=== PATIENT | female | born 1980 | race American Indian/Alaskan Native ===

== ENCOUNTER 2021-08-12 14:11 | Observation (INO) | payer MEDICAID ==
[2021-08-12] MEDS ORDERED: ASPIRIN 81 MG TAB CHEW PO ONE ×2 (15:10)
--- NOTE | 2021-08-12 15:34 | Emergency Department Report ---
ED General Adult HPI - General Chief complaint: Chest Pain Stated complaint: Chest Pains Time Seen by Provider: 08/12/21 14:48 Source: patient, family Mode of arrival: Ambulatory Limitations: No Limitations - History of Present Illness Initial comments: Patient is a 41-year-old female presents emergency room complaints of left-sided chest pain that began 3 days ago. She states that she has intermittent sharp pain which she states feels like a pulling sensation but she reports today it has been constant. She states that she has some shortness of breath and feels like she needs to catch her breath. She denies any pleuritic pain. She denies any radiation of the pain, diaphoresis, nausea, vomiting, leg swelling, calf pain, hemoptysis, cough, diarrhea. She denies any known sick contacts, recent travel, recent surgery, recent immobilization, hormone use. Past medical history of CAD. She states that she had a heart cath in February 2021 with a c ardiologist at [facility] and she states that she has 50% blockage of her LAD but states that they do not want to place a stent and wanted to manage it medically. Allergy to morphine. Patient is a former smoker. pt states she had a low dose aspirin 81 mg today - Related Data Allergies Allergy/AdvReac Type Severity Reaction Status Date / Time morphine Allergy Severe Hives Verified 08/12/21 14:34 ED Review of Systems ROS: Stated complaint: Chest Pains Other details as noted in HPI Comment: All other systems reviewed and negative ED Physical Exam - General Limitations: No Limitations General appearance: alert, in no apparent distress - Head Head exam: Present: atraumatic, normocephalic - Eye Eye exam: Present: normal appearance - ENT ENT exam: Present: mucous membranes moist - Respiratory Respiratory exam: Present: normal lung sounds bilaterally. Absent: respiratory distress, wheezes, rales, rhonchi, stridor, chest wall tenderness, accessory muscle use, decreased breath sounds, prolonged expiratory - Cardiovascular Cardiovascular Exam: Present: regular rate, normal rhythm, normal heart sounds. Absent: systolic murmur, diastolic murmur, rubs, gallop - Neurological Exam Neurological exam: Present: alert, oriented X3 - Psychiatric Psychiatric exam: Present: normal affect, normal mood - Skin Skin exam: Present: warm, dry, intact ED Course Vital Signs 11/29/21 11/29/21 20:09 20:17 Temperature 98.7 F Respiratory 12 Rate Blood Pressure 134/76 [Right] O2 Sat by Pulse 100 Oximetry - Consultations Consultation #1: 08/12/21 21:[address] Lyons, hospitalist who will accept and resume care of patient, will admit to hospital service ED Medical Decision Making - Lab Data Result diagrams: 08/12/21 15:13 08/12/21 15:13 Lab Results 08/12/21 08/12/21 08/12/21 Range/Units 15:13 15:13 15:13 WBC 7.5 (4.5-11.0) K/mm3 RBC 4.30 (3.65-5.03) M/mm3 Hgb 12.0 (10.1-14.3) gm/dl Hct 37.8 (30.3-42.9) % MCV 88 (79-97) fl MCH 28 (28-32) pg MCHC 32 (30-34) % RDW 15.0 (13.2-15.2) % Plt Count 303 (140-440) K/mm3 Lymph % (Auto) 31.4 (13.4-35.0) % [place] % (Auto) 7.2 (0.0-7.3) % Eos % (Auto) 3.0 (0.0-4.3) % Baso % (Auto) 0.5 (0.0-1.8) % Lymph # (Auto) 2.3 (1.2-5.4) K/mm3 [place] # (Auto) 0.5 (0.0-0.8) K/mm3 Eos # (Auto) 0.2 (0.0-0.4) K/mm3 Baso # (Auto) 0.0 (0.0-0.1) K/mm3 Seg Neutrophils % 57.9 (40.0-70.0) % Seg Neutrophils # 4.3 (1.8-7.7) K/mm3 D-Dimer < 135.0 (0-234) ng/mlDDU Sodium 139 (137-145) mmol/L Potassium 3.5 L (3.6-5.0) mmol/L Chloride 107.3 H (98-107) mmol/L Carbon Dioxide 18 L (22-30) mmol/L Anion Gap 17 mmol/L BUN 10 (7-17) mg/dL Creatinine 0.9 (0.6-1.2) mg/dL Estimated GFR > 60 ml/min BUN/Creatinine Ratio 11 % Glucose 83 (65-100) mg/dL Calcium 9.1 (8.4-10.2) mg/dL Total Bilirubin 0.50 (0.1-1.2) mg/dL AST 19 (5-40) units/L ALT 36 (7-56) units/L Alkaline Phosphatase 117 (35-129) units/L Troponin T < 0.010 (0.00-0.029) ng/mL Total Protein 8.0 (6.3-8.2) g/dL Albumin 4.5 (3.9-5) g/dL Albumin/Globulin Ratio 1.3 % HCG, Qual (Negative) 08/12/21 08/12/21 Range/Units 15:13 18:28 WBC (4.5-11.0) K/mm3 RBC (3.65-5.03) M/mm3 Hgb (10.1-14.3) gm/dl Hct (30.3-42.9) % MCV (79-97) fl MCH (28-32) pg MCHC (30-34) % RDW (13.2-15.2) % Plt Count (140-440) K/mm3 Lymph % (Auto) (13.4-35.0) % [place] % (Auto) (0.0-7.3) % Eos % (Auto) (0.0-4.3) % Baso % (Auto) (0.0-1.8) % Lymph # (Auto) (1.2-5.4) K/mm3 [place] # (Auto) (0.0-0.8) K/mm3 Eos # (Auto) (0.0-0.4) K/mm3 Baso # (Auto) (0.0-0.1) K/mm3 Seg Neutrophils % (40.0-70.0) % Seg Neutrophils # (1.8-7.7) K/mm3 D-Dimer (0-234) ng/mlDDU Sodium (137-145) mmol/L Potassium (3.6-5.0) mmol/L Chloride (98-107) mmol/L Carbon Dioxide (22-30) mmol/L Anion Gap mmol/L BUN (7-17) mg/dL Creatinine (0.6-1.2) mg/dL Estimated GFR ml/min BUN/Creatinine Ratio % Glucose (65-100) mg/dL Calcium (8.4-10.2) mg/dL Total Bilirubin (0.1-1.2) mg/dL AST (5-40) units/L ALT (7-56) units/L Alkaline Phosphatase (35-129) units/L Troponin T < 0.010 (0.00-0.029) ng/mL Total Protein (6.3-8.2) g/dL Albumin (3.9-5) g/dL Albumin/Globulin Ratio % HCG, Qual Negative (Negative) - EKG Data EKG shows normal: sinus rhythm, axis, intervals, QRS complexes, ST-T waves Rate: normal - Radiology Data Radiology results: report reviewed Ordering Physician: MATTHIAS OWENS Date of Service: 08/12/21 Procedure(s): XR chest routine 2V Accession Number(s): [id number] cc: MATTHIAS OWENS Fluoro Time In Minutes: CHEST 2 VIEWS INDICATION / CLINICAL INFORMATION: Chest Pain. COMPARISON: 01/31/2021 FINDINGS: SUPPORT DEVICES: None. HEART / MEDIASTINUM: No significant abnormality. LUNGS / PLEURA: No significant pulmonary or pleural abnormality. No pneumothorax. ADDITIONAL FINDINGS: No significant additional findings. IMPRESSION: 1. No acute findings. Signer Name: True Sims MD Signed: 08/12/2021 4:40 PM Workstation Name: [id number] Transcribed By: MADHURI Dictated By: True Sims MD Electronically Authenticated By: True Sims MD Signed Date/Time: 08/12/21 1640 DD/ 1639 TD/TT: - Medical Decision Making Patient is a 41-year-old female presents emergency room complaints of left-sided chest pain that began 3 days ago. She states that she has intermittent sharp pain which she states feels like a pulling sensation but she reports today it has been constant. She states that she has some shortness of breath and feels like she needs to catch her breath. She denies any pleuritic pain. She denies any radiation of the pain, diaphoresis, nausea, vomiting, leg swelling, calf pain, hemoptysis, cough, diarrhea. She denies any known sick contacts, recent travel, recent surgery, recent immobilization, hormone use. Past medical history of CAD. She states that she had a heart cath in February 2021 with a jamb cutter at [facility] and she states that she has 50% blockage of her LAD but states that they do not want to place a stent and wanted to manage it medic ally. Allergy to morphine. Patient is a former smoker. pt states she had a low dose aspirin 81 mg today. EKG is within normal limits. Chest x-ray is normal. D-dimer is negative, PERC criteria negative for PE, PE unlikely. Troponin is negative x2. Patient's heart score is 4. Discussed case with Dr. Khan, ER attending who recommended admission.Spoke to Dr. Lyons, hospitalist who will accept and resume care of patient, will admit to hospital service. Discussed all findings with patient and she is agreeable with admission. Critical care attestation.: If time is entered above; I have spent that time in minutes in the direct care of this critically ill patient, excluding procedure time. ED Disposition Clinical Impression: Chest pain Qualifiers: Chest pain type: unspecified Qualified Code(s): R07.9 - Chest pain, unspecified Disposition: 02 [facility] TERM [facility] Is pt being admited?: Yes Does the pt Need Aspirin: Yes (given) Condition: Stable Instructions: Nonspecific Chest Pain, Adult Referrals: GOLDEN GOLDEN MD [Primary Care Provider] - 3-5 Days Time of Disposition: 21:31 Print Language: PORTUGUESE HEART Score - HEART Score History: Highly suspicious EKG: Normal Age: < 45 Risk factors: > 3 risk factors or hx of atherosclerotic disease Troponin: Troponin T < 0.010 ng/mL (0.00-0.029) 08/12/21 18:28 Troponin: < normal limit HEART Score: 4
[2021-08-12 15:39] LABS: Basophils % (Auto) 0.5 % (0.0-1.8); Eosinophils # (Auto) 0.2 K/mm3 (0.0-0.4); Hematocrit 37.8 % (30.3-42.9); Lymphocytes # (Auto) 2.3 K/mm3 (1.2-5.4); Lymphocytes % (Auto) 31.4 % (13.4-35.0); Mean Corpuscular HGB Conc 32 % (30-34); Mean Corpuscular Volume 88 fl (79-97); Monocytes # (Auto) 0.5 K/mm3 (0.0-0.8); Monocytes % (Auto) 7.2 % (0.0-7.3); Platelet Count 303 K/mm3 (140-440)
[2021-08-12 16:13] LABS: Alanine Aminotransferase 36 units/L (7-56); Albumin 4.5 g/dL (3.9-5); BUN/Creatinine Ratio 11; Blood Urea Nitrogen 10 mg/dL (7-17); Calcium 9.1 mg/dL (8.4-10.2); Hemolysis Index 4
--- NOTE | 2021-08-12 16:44 | XRay Report ---
CHEST 2 VIEWS INDICATION / CLINICAL INFORMATION: Chest Pain. COMPARISON: 01/31/2021 FINDINGS: SUPPORT DEVICES: None. HEART / MEDIASTINUM: No significant abnormality. LUNGS / PLEURA: No significant pulmonary or pleural abnormality. No pneumothorax. ADDITIONAL FINDINGS: No significant additional findings. IMPRESSION: 1. No acute findings. Signer Name: True Sims MD Signed: 08/12/2021 4:40 PM Workstation Name: [id number]
[2021-08-12] MEDS ORDERED: NITROGLYCERIN 0.4 MG TAB SUBL SL PRN (22:16)
[2021-08-12] MEDS ORDERED: traMADol 50 MG TAB PO PRN (22:16)
[2021-08-12] MEDS ORDERED: ACETAMINOPHEN 325 MG TAB PO PRN (22:16)
[2021-08-12] MEDS ORDERED: HYDROmorphone 1 MG/1 ML INJ IV PRN (22:16)
--- NOTE | 2021-08-12 22:24 | History and Physical Report ---
History of Present Illness Date of examination: 08/12/21 Date of admission: 08/12/21 21:32 Chief complaint: Chest pain History of present illness: 41-year-old female with history of CAD, 50% blockage of her LAD was brought to the emergency room because of left-sided chest pain which is sharp 6/10 that began 3 days ago. Patient complained of intermittent sharp pain which she states feels like a pulling sensation but she reports today it has been constant. She states that she has some shortness of breath and feels like she needs to catch her breath. She denies any pleuritic pain. She denies any radiation of the pain, diaphoresis, nausea, vomiting, leg swelling, calf pain, hemoptysis, cough, diarrhea. She states that she had a heart cath in February 2021 with a application chemist at [facility] and she states that she has 50% blockage of her LAD but states that they do not want to place a stent and wanted to manage it medically. Allergy to morphine. Patient is a former smoker. pt states she had a low dose aspirin 81 mg today EKG is within normal limits. Chest x-ray is normal. D-dimer is negative, PERC criteria negative for PE, PE unlikely. Troponin is negative x2. Patient's heart score is 4. Admit the patient to the medical telemetry. Will consult cardiology for further evaluation and treatment Med rec is not available Past History Past Medical History: CAD Medications and Allergies Allergies Allergy/AdvReac Type Severity Reaction Status Date / Time morphine Allergy Severe Hives Verified 08/12/21 14:34 Review of Systems All systems: negative Cardiovascular: chest pain, shortness of breath, dyspnea on exertion Respiratory: shortness of breath, dyspnea on exertion Exam - Constitutional Vitals: Temp Pulse Resp BP Pulse Ox 98.5 F 67 17 128/68 100 08/12/21 22:00 08/12/21 22:00 08/12/21 22:00 08/12/21 22:00 08/12/21 22:00 General appearance: Present: no acute distress, well-nourished - EENT Eyes: Present: PERRL ENT: hearing intact, clear oral mucosa - Neck Neck: Present: supple, normal ROM - Respiratory Respiratory effort: normal Respiratory: bilateral: diminished - Cardiovascular Heart Sounds: Present: S1 & S2. Absent: rub, click - Extremities Extremities: pulses symmetrical, No edema Peripheral Pulses: within normal limits - Abdominal General gastrointestinal: Present: soft, non-tender, non-distended, normal bowel sounds Female genitourinary: Present: normal - Integumentary Integumentary: Present: clear, warm, dry - Musculoskeletal Musculoskeletal: gait normal, strength equal bilaterally - Psychiatric Psychiatric: appropriate mood/affect, intact judgment & insight - Neurologic Neurologic: CNII-XII intact, moves all extremities HEART Score - HEART Score EKG: Normal Age: < 45 Risk factors: > 3 risk factors or hx of atherosclerotic disease Troponin: Troponin T < 0.010 ng/mL (0.00-0.029) 08/12/21 18:28 Troponin: < normal limit Results - Labs CBC & Chem 7: 08/12/21 15:13 08/12/21 15:13 Labs: Laboratory Last Values WBC 7.5 K/mm3 (4.5-11.0) 08/12/21 15:13 RBC 4.30 M/mm3 (3.65-5.03) 08/12/21 15:13 Hgb 12.0 gm/dl (10.1-14.3) 08/12/21 15:13 Hct 37.8 % (30.3-42.9) 08/12/21 15:13 MCV 88 fl (79-97) 08/12/21 15:13 MCH 28 pg (28-32) 08/12/21 15:13 MCHC 32 % (30-34) 08/12/21 15:13 RDW 15.0 % (13.2-15.2) 08/12/21 15:13 Plt Count 303 K/mm3 (140-440) 08/12/21 15:13 Lymph % (Auto) 31.4 % (13.4-35.0) 08/12/21 15:13 [place] % (Auto) 7.2 % (0.0-7.3) 08/12/21 15:13 Eos % (Auto) 3.0 % (0.0-4.3) 08/12/21 15:13 Baso % (Auto) 0.5 % (0.0-1.8) 08/12/21 15:13 Lymph # (Auto) 2.3 K/mm3 (1.2-5.4) 08/12/21 15:13 [place] # (Auto) 0.5 K/mm3 (0.0-0.8) 08/12/21 15:13 Eos # (Auto) 0.2 K/mm3 (0.0-0.4) 08/12/21 15:13 Baso # (Auto) 0.0 K/mm3 (0.0-0.1) 08/12/21 15:13 Seg Neutrophils % 57.9 % (40.0-70.0) 08/12/21 15:13 Seg Neutrophils # 4.3 K/mm3 (1.8-7.7) 08/12/21 15:13 D-Dimer < 135.0 ng/mlDDU (0-234) 08/12/21 15:13 Sodium 139 mmol/L (137-145) 08/12/21 15:13 Potassium 3.5 mmol/L (3.6-5.0) L 08/12/21 15:13 Chloride 107.3 mmol/L (98-107) H 08/12/21 15:13 Carbon Dioxide 18 mmol/L (22-30) L 08/12/21 15:13 Anion Gap 17 mmol/L 08/12/21 15:13 BUN 10 mg/dL (7-17) 08/12/21 15:13 Creatinine 0.9 mg/dL (0.6-1.2) 08/12/21 15:13 Estimated GFR > 60 ml/min 08/12/21 15:13 BUN/Creatinine Ratio 11 % 08/12/21 15:13 Glucose 83 mg/dL (65-100) 08/12/21 15:13 Calcium 9.1 mg/dL (8.4-10.2) 08/12/21 15:13 Total Bilirubin 0.50 mg/dL (0.1-1.2) 08/12/21 15:13 AST 19 units/L (5-40) 08/12/21 15:13 ALT 36 units/L (7-56) 08/12/21 15:13 Alkaline Phosphatase 117 units/L (35-129) 08/12/21 15:13 Troponin T < 0.010 ng/mL (0.00-0.029) 08/12/21 18:28 Total Protein 8.0 g/dL (6.3-8.2) 08/12/21 15:13 Albumin 4.5 g/dL (3.9-5) 08/12/21 15:13 Albumin/Globulin Ratio 1.3 % 08/12/21 15:13 HCG, Qual Negative (Negative) 08/12/21 15:13 - Imaging and Cardiology Chest x-ray: report reviewed Assessment and Plan VTE prophylaxis?: Chemical Plan of care discussed with patient/family: Yes - Patient Problems (1) Acute coronary syndrome Current Visit: Yes Status: Acute Plan to address problem: Admit the patient to the medical telemetry. N.p.o. Aspirin 325 mg p.o. daily. Lipitor 80 mg p.o. daily. Nitroglycerin half-inch to the chest wall every 6 hours. Serial cardiac enzymes. Echocardiogram. Consult cardiology for further evaluation and treatment. Heparin 5000 units subcu every 8 hours (2) Coronary artery disease Current Visit: Yes Status: Acute Plan to address problem: N.p.o. Aspirin 325 mg p.o. daily. Lipitor 80 mg p.o. daily. Nitroglycerin half-inch to the chest wall every 6 hours. Serial cardiac enzymes. Echocardiogram. Consult cardiology for further evaluation and treatment. H eparin 5000 units subcu every 8 hours (3) Tobacco abuse Current Visit: Yes Status: Acute Plan to address problem: Patient counseled regarding quit smoking (4) DVT prophylaxis Current Visit: Yes Status: Acute Plan to address problem: Heparin 5000 units subcu every 8 hours for DVT prophylaxis. Protonix 40 mg p.o. daily for GI prophylaxis. Patient is a full code
[2021-08-12] MEDS ORDERED: SODIUM CHLORIDE 0.9% 1000 ML 1,000 ML IV SCH (22:30)
[2021-08-13] MEDS ORDERED: ZOLPIDEM 5 MG TAB PO PRN (01:44)
[2021-08-13 04:19] VITALS: BP 114/63
[2021-08-13] MEDS: HEPARIN 5,000 UNIT/1 ML VIAL SUB-Q SCH ×2 (05:55→13:04)
[2021-08-13] MEDS: NITROGLYCERIN 2% OINT 1 GM TP SCH ×2 (06:41→13:02)
--- NOTE | 2021-08-13 09:20 | Progress Note ---
Assessment and Plan Assessment and plan: History of present illness: 41-year-old female with history of CAD, 50% blockage of her LAD was brought to the emergency room because of left-sided chest pain which is sharp 6/10 that began 3 days ago. Patient complained of intermittent sharp pain which she states feels like a pulling sensation but she reports today it has been constant. She states that she has some shortness of breath and feels like she needs to catch her breath. She denies any pleuritic pain. She denies any radiation of the pain, diaphoresis, nausea, vomiting, leg swelling, calf pain, hemoptysis, cough, diarrhea. She states that she had a heart cath in February 2021 with a skull splitter at [facility] and she states that she has 50% blockage of her LAD but states that they do not want to place a stent and wanted to manage it medically. Allergy to morphine. Patient is a former smoker. pt states she had a low dose aspirin 81 mg today EKG is within normal limits. Chest x-ray is normal. D-dimer is negative, PERC criteria negative for PE, PE unlikely. Troponin is negative x2. Patient's heart score is 4. Admit the patient to the medical telemetry. Will consult cardiology for further evaluation and treatment Med rec is not available Hospital course to date 08/13: D/w patient regarding chest pain. Appears to have accelerating symptoms of chest pain. She states she is complaint with medication. Patient has had workup with cardiac CT and cath which demonstrated calcific lesion in LAD approx 50%. She could benefit from long acting nitrate, such as imdur. will defer to cardiology for medical optimization. ECHO pending. Anticipate d/c in next 24hrs. Assessment and plan (1) Acute Coronary Syndrome Current Visit: Yes Status: Acute Plan to address problem: Admit the patient to the medical telemetry. N.p.o. Aspirin 325 mg p.o. daily. Lipitor 80 mg p.o. daily. Nitroglycerin half-inch to the chest wall every 6 hours. Serial cardiac enzymes. Echocardiogram. Consult cardiology for further evaluation and treatment. Heparin 5000 units subcu every 8 hours (2) Coronary artery disease Current Visit: Yes Status: Acute Plan to address problem: N.p.o. Aspirin 325 mg p.o. daily. Lipitor 80 mg p.o. daily. Nitroglycerin half-inch to the chest wall every 6 hours. Serial cardiac enzymes. Echocardiogram. Consult cardiology for further evaluation and treatment. Heparin 5000 units subcu every 8 hours Home cardiac meds: metoprolol ER 25 mg po qdaily, ASA 81, atorvastatin 40 mg po qhs, nitro 0.5 mg SL prn (3) Palpitations Current Visit: Yes Status: Acute Plan to address problem: History of palpitations per patient for which she takes diltiazem 120 mg po bid (3) Tobacco abuse Current Visit: Yes Status: Acute Plan to address problem: Patient counseled regarding quit smoking (4) DVT prophylaxis Current Visit: Yes Status: Acute Plan to address problem: Heparin 5000 units subcu every 8 hours for DVT prophylaxis. Protonix 40 mg p.o. daily for GI prophylaxis. Patient is a full code History Interval history: No acute complaints on encounter. Hospitalist Physical - Physical exam Narrative exam: Physical Exam: VITAL SIGNS: Reviewed. GENERAL: The patient appears normally developed, Vital signs as documented. HEAD: No signs of head trauma. EYES: Pupils are equal. Extraocular motions intact. EARS: Hearing grossly intact. MOUTH: Oropharynx is normal. NECK: No adenopathy, no JVD. CHEST: Chest with clear breath sounds bilaterally. No wheezes, rales, or rhonchi. CARDIAC: Regular rate and rhythm. S1 and S2, without murmurs, gallops, or rubs. VASCULAR: No Edema. Peripheral pulses normal and equal in all extremities. ABDOMEN: Soft, non tender and non distended. No rebound or guarding, and no masses palpated. Bowel Sounds normal. MUSCULOSKELETAL: Good range of motion of all major joints. Extremities without clubbing, cyanosis or edema. NEUROLOGIC EXAM: Alert and oriented x 4. no focal sensory or strength deficits. PSYCHIATRIC: Mood normal. SKIN: detail exam as documented in skin assessment - Constitutional Vitals: Temp Pulse Resp BP Pulse Ox 98.9 F 98 H 18 114/63 100 08/13/21 07:22 08/13/21 07:22 08/13/21 07:22 08/13/21 07:22 08/13/21 07:22 General appearance: Present: no acute distress, well-nourished HEART Score - HEART Score EKG: Normal Age: < 45 Risk factors: > 3 risk factors or hx of atherosclerotic disease Troponin: Troponin T < 0.010 ng/mL (0.00-0.029) 08/12/21 18:28 Troponin: < normal limit Results - Labs CBC & Chem 7: 08/12/21 22:16 08/12/21 15:13 Labs: Laboratory Last Values WBC 7.5 K/mm3 (4.5-11.0) 08/12/21 15:13 RBC 4.30 M/mm3 (3.65-5.03) 08/12/21 15:13 Hgb 12.0 gm/dl (10.1-14.3) 08/12/21 15:13 Hct 37.8 % (30.3-42.9) 08/12/21 15:13 MCV 88 fl (79-97) 08/12/21 15:13 MCH 28 pg (28-32) 08/12/21 15:13 MCHC 32 % (30-34) 08/12/21 15:13 RDW 15.0 % (13.2-15.2) 08/12/21 15:13 Plt Count 303 K/mm3 (140-440) 08/12/21 15:13 Lymph % (Auto) 31.4 % (13.4-35.0) 08/12/21 15:13 [place] % (Auto) 7.2 % (0.0-7.3) 08/12/21 15:13 Eos % (Auto) 3.0 % (0.0-4.3) 08/12/21 15:13 Baso % (Auto) 0.5 % (0.0-1.8) 08/12/21 15:13 Lymph # (Auto) 2.3 K/mm3 (1.2-5.4) 08/12/21 15:13 [place] # (Auto) 0.5 K/mm3 (0.0-0.8) 08/12/21 15:13 Eos # (Auto) 0.2 K/mm3 (0.0-0.4) 08/12/21 15:13 Baso # (Auto) 0.0 K/mm3 (0.0-0.1) 08/12/21 15:13 Seg Neutrophils % 57.9 % (40.0-70.0) 08/12/21 15:13 Seg Neutrophils # 4.3 K/mm3 (1.8-7.7) 08/12/21 15:13 D-Dimer < 135.0 ng/mlDDU (0-234) 08/12/21 15:13 Sodium 139 mmol/L (137-145) 08/12/21 15:13 Potassium 3.5 mmol/L (3.6-5.0) L 08/12/21 15:13 Chloride 107.3 mmol/L (98-107) H 08/12/21 15:13 Carbon Dioxide 18 mmol/L (22-30) L 08/12/21 15:13 Anion Gap 17 mmol/L 08/12/21 15:13 BUN 10 mg/dL (7-17) 08/12/21 15:13 Creatinine 0.9 mg/dL (0.6-1.2) 08/12/21 15:13 Estimated GFR > 60 ml/min 08/12/21 15:13 BUN/Creatinine Ratio 11 % 08/12/21 15:13 Glucose 83 mg/dL (65-100) 08/12/21 15:13 Calcium 9.1 mg/dL (8.4-10.2) 08/12/21 15:13 Total Bilirubin 0.50 mg/dL (0.1-1.2) 08/12/21 15:13 AST 19 units/L (5-40) 08/12/21 15:13 ALT 36 units/L (7-56) 08/12/21 15:13 Alkaline Phosphatase 117 units/L (35-129) 08/12/21 15:13 Troponin T < 0.010 ng/mL (0.00-0.029) 08/12/21 18:28 Total Protein 8.0 g/dL (6.3-8.2) 08/12/21 15:13 Albumin 4.5 g/dL (3.9-5) 08/12/21 15:13 Albumin/Globulin Ratio 1.3 % 08/12/21 15:13 HCG, Qual Negative (Negative) 08/12/21 15:13 Tyler/IV: Voiding Method Toilet Active Medications - Current Medications Current Medications: Generic Name Dose Route Start Last Admin Trade Name Freq PRN Reason Stop Dose Admin Acetaminophen 650 mg 08/12/21 22:16 Acetaminophen 325 Mg Tab PO Q6H PRN Pain, Mild (1-3) Aspirin 325 mg 08/13/21 10:00 08/13/21 09:01 Aspirin Ec 325 Mg Tab PO 325 mg QDAY BENTLEY Administration Atorvastatin Calcium 80 mg 08/13/21 22:00 Atorvastatin 40 Mg Tab PO QHS [facility] Heparin Sodium (Porcine) 5,000 unit 08/13/21 06:00 08/13/21 05:55 Heparin 5,000 Unit/1 Ml Vial SUB-Q 5,000 unit Q8HR BENTLEY Administration Hydromorphone HCl 0.25 mg 08/12/21 22:16 Hydromorphone 1 Mg/1 Ml Inj IV Q5MIN PRN Chest Pain Sodium Chloride 1,000 mls @ 100 mls/hr 08/12/21 22:30 08/13/21 05:58 Nacl 0.9% 1000 Ml IV 100 mls/hr DIRECT BENTLEY Administration Nitroglycerin 1 inch 08/13/21 06:00 08/13/21 06:41 Nitroglycerin 2% Oint 1 Gm TP Not Given TIDNTG [facility] Protocol Nitroglycerin 0.4 mg 08/12/21 22:16 Nitroglycerin 0.4 Mg Tab Subl SL Q5M PRN Chest Pain Pantoprazole Sodium 40 mg 08/13/21 10:00 08/13/21 09:01 Pantoprazole 40 Mg Tab PO 40 mg QDAY BENTLEY Administration Sodium Chloride 10 ml 08/12/21 22:16 Sodium Chloride 0.9% 10 Ml Flush Syringe IV PRN PRN LINE FLUSH Tramadol HCl 50 mg 08/12/21 22:16 Tramadol 50 Mg Tab PO Q6H PRN Pain, Moderate (4-6) Zolpidem Tartrate 10 mg 08/13/21 01:44 08/13/21 02:10 Zolpidem 5 Mg Tab PO 10 mg QHS PRN Administration Sleep
[2021-08-13] MEDS ORDERED: ASPIRIN EC 325 MG TAB PO SCH (10:00)
[2021-08-13] MEDS ORDERED: PANTOPRAZOLE 40 MG TAB PO SCH (10:00)
[2021-08-13 10:16] LABS: Basophils % (Auto) 0.6 % (0.0-1.8); Eosinophils # (Auto) 0.2 K/mm3 (0.0-0.4); Eosinophils % (Auto) 3.5 % (0.0-4.3); Hematocrit 35.9 % (30.3-42.9); Hemoglobin 11.3 gm/dl (10.1-14.3); Lymphocytes # (Auto) 1.9 K/mm3 (1.2-5.4); Lymphocytes % (Auto) 26.9 % (13.4-35.0); Mean Corpuscular HGB Conc 31 % (30-34); Mean Corpuscular Volume 89 fl (79-97); Monocytes # (Auto) 0.4 K/mm3 (0.0-0.8); Platelet Count 276 K/mm3 (140-440); Red Blood Count 4.04 M/mm3 (3.65-5.03); Red Cell Distribution Width 14.8 % (13.2-15.2)
--- NOTE | 2021-08-13 11:14 | Electrocardiograph Report ---
[facility] Test Date: 2021-08-12 Test Time: 14:29:24 Pat Name: Yumiko Tracey Department: Room: A474 1 Gender: F Attraction Attendant: RUY : 1980 Requested By: GURDEEP WHITEHEAD Order Number: [id number] Reading MD: Shiv Lara Measurements Intervals [place] Rate: 71 P: 5 MD: 143 QRS: 15 QRSD: 107 T: 30 QT: 415 QTc: 451 Interpretive Statements Sinus rhythm No previous ECG available for comparison Electronically Signed On 08-13-2021 11:13:29 EST by Shiv Lara
--- NOTE | 2021-08-13 11:21 | Electrocardiograph Report ---
[facility] Test Date: 2021-08-13 Test Time: 07:31:44 Pat Name: Yumiko Tracey Department: Room: A474 1 Gender: F Air Intelligence Officer: JOSEPHINE : 1980 Requested By: THUY RAPHAEL Order Number: [id number] Reading MD: Shiv Lara Measurements Intervals [place] Rate: 99 P: 66 WI: 140 QRS: 7 QRSD: 100 T: 40 QT: 384 QTc: 492 Interpretive Statements Sinus rhythm Low voltage, precordial leads Compared to ECG 08/12/2021 14:29:24 Low QRS voltage now present Electronically Signed On 08-13-2021 11:21:09 EST by Shiv Lara
--- NOTE | 2021-08-13 12:55 | Consultation ---
History of Present Illness Consult date: 08/13/21 Consult reason: chest pain History of present illness: 41-year old M admitted with chest pain. Chest pain is atypical and non- exertional. Chest pain is associated with shortness of breath. No report of palpitations or dizziness. Chest x-ray is negative. Serial troponin measurement were normal and her ECG is benign, sinus rhythm with low voltage. Cardiology consultation has been requested for further evaluation. Patient has a history of bipolar depression, obesity, and asthma. In February, the patient was hospitalized at [facility] with chest pain. A cardiac cath done showed small vessel coronary artery disease recommended for medical therapy. Her latest echo reports a preserved left ventricular fraction 55-60%. Past History Past Medical History: CAD, other (Asthma, bipolar, anxiety) Medications and Allergies Allergies Allergy/AdvReac Type Severity Reaction Status Date / Time morphine Allergy Severe Hives, Verified 08/13/21 09:41 itching Home Medications Medication Instructions Recorded Confirmed Last Taken Type Albuterol Sulfate [Proair 90 mcg IH Q6H PRN 08/13/21 08/13/21 Unknown History Respiclick] Aspirin [[place]az[place]] 81 mg PO QAM 08/13/21 08/13/21 08/12/21 History Atorvastatin [Lipitor Tab] 40 mg PO QHS 08/13/21 08/13/21 08/11/21 History Cetirizine HCl [Cetirizine 5mg tab] 5 mg PO DAILY 08/13/21 08/13/21 08/12/21 History Dicyclomine [Bentyl] 10 mg PO TID 08/13/21 08/13/21 08/12/21 History HYDROcodone/APAP 5-325 1 tab PO Q6HR PRN 08/13/21 08/13/21 2 Weeks Ago History ~07/30/21 Ibuprofen [Motrin 800 MG tab] 800 mg PO Q8HR PRN 08/13/21 08/13/21 Unknown History Meclizine [Antivert] 25 mg PO HS 08/13/21 08/13/21 08/11/21 History Metoprolol Xl [Metoprolol 25 mg PO QDAY 08/13/21 08/13/21 08/12/21 History SUCCINATE ER TAB] Montelukast [Singulair] 10 mg PO HS 08/13/21 08/13/21 1 Week Ago History ~08/06/21 Nitroglycerin [Nitrostat] 0.4 mg SL Q5M PRN 08/13/21 08/13/21 Unknown History Nortriptyline HCl [Pamelor] 75 mg PO QHS 08/13/21 08/13/21 08/11/21 History Ondansetron [Zofran ODT TAB] 1 tab PO Q12H PRN 08/13/21 08/13/21 Unknown History Pantoprazole [Protonix] 40 mg PO QAM 08/13/21 08/13/21 08/12/21 History Pregabalin [Lyrica] 75 mg PO BID 08/13/21 08/13/21 08/12/21 History Topiramate [Topamax] 50 mg PO BID 08/13/21 08/13/21 08/12/21 History Zolpidem [Ambien] 10 mg PO QHS PRN 08/13/21 08/13/21 08/11/21 History busPIRone [Buspar] 5 mg PO BID 08/13/21 08/13/21 08/12/21 History dilTIAZem HCL [Diltiazem 24Hr ER 120 mg PO QAM 08/13/21 08/13/21 08/12/21 History (Xr)] lamoTRIgine [Subvenite] 25 mg PO BID 08/13/21 08/13/21 08/12/21 History medroxyPROGESTERone ACETATE 150 mg IM [id number] 08/13/21 08/13/21 1 Month Ago History [Medroxyprogesterone Acetate] ~07/13/21 Active Meds: Active Medications Acetaminophen (Acetaminophen 325 Mg Tab) 650 mg PO Q6H PRN PRN Reason: Pain, Mild (1-3) Aspirin (Aspirin Ec 325 Mg Tab) 325 mg PO QDAY [facility] Last Admin: 08/13/21 09:01 Dose: 325 mg Documented by: Atorvastatin Calcium (Atorvastatin 40 Mg Tab) 80 mg PO QHS [facility] Diltiazem HCl (Diltiazem Cd 120 Mg Cap) 120 mg PO BID [facility] Heparin Sodium (Porcine) (Heparin 5,000 Unit/1 Ml Vial) 5,000 unit SUB-Q Q8HR [facility] Last Admin: 08/13/21 05:55 Dose: 5,000 unit Documented by: Hydromorphone HCl (Hydromorphone 1 Mg/1 Ml Inj) 0.25 mg IV Q5MIN PRN PRN Reason: Chest Pain Sodium Chloride (Nacl 0.9% 1000 Ml) 1,000 mls @ 100 mls/hr IV DIRECT [facility] Last Admin: 08/13/21 05:58 Dose: 100 mls/hr Documented by: Metoprolol Succinate (Metoprolol Succinate Xl 25 Mg Tab) 25 mg PO QDAY [facility] Nitroglycerin (Nitroglycerin 2% Oint 1 Gm) 1 inch TP TIDNTG [facility]; Protocol Last Admin: 08/13/21 06:41 Dose: Not Given Documented by: Nitroglycerin (Nitroglycerin 0.4 Mg Tab Subl) 0.4 mg SL Q5M PRN PRN Reason: Chest Pain Pantoprazole Sodium (Pantoprazole 40 Mg Tab) 40 mg PO QDAY [facility] Last Admin: 08/13/21 09:01 Dose: 40 mg Documented by: Sodium Chloride (Sodium Chloride 0.9% 10 Ml Flush Syringe) 10 ml IV PRN PRN PRN Reason: LINE FLUSH Tramadol HCl (Tramadol 50 Mg Tab) 50 mg PO Q6H PRN PRN Reason: Pain, Moderate (4-6) Zolpidem Tartrate (Zolpidem 5 Mg Tab) 10 mg PO QHS PRN PRN Reason: Sleep Last Admin: 08/13/21 02:10 Dose: 10 mg Documented by: Review of Systems Cardiovascular: chest pain Physical Examination Vital Signs Temp Pulse Resp BP Pulse Ox 98.3 F 69 16 102/63 100 08/12/21 17:07 08/12/21 17:07 08/12/21 17:07 08/12/21 17:07 08/12/21 17:07 General appearance: no acute distress HEENT: Positive: PERRL Cardiac: Positive: Reg Rate and Rhythm Lungs: Positive: Decreased Breath Sounds Results 08/12/21 22:16 08/12/21 15:13 Cardiac Enzymes 08/12/21 Range/Units 15:13 AST 19 (5-40) units/L CBC 08/12/21 08/12/21 Range/Units 15:13 22:16 WBC 7.5 7.1 (4.5-11.0) K/mm3 RBC 4.30 4.04 (3.65-5.03) M/mm3 Hgb 12.0 11.3 (10.1-14.3) gm/dl Hct 37.8 35.9 (30.3-42.9) % Plt Count 303 276 (140-440) K/mm3 Lymph # (Auto) 2.3 1.9 (1.2-5.4) K/mm3 [place] # (Auto) 0.5 0.4 (0.0-0.8) K/mm3 Eos # (Auto) 0.2 0.2 (0.0-0.4) K/mm3 Baso # (Auto) 0.0 0.0 (0.0-0.1) K/mm3 Comprehensive Metabolic Panel 08/12/21 Range/Units 15:13 Sodium 139 (137-145) mmol/L Potassium 3.5 L (3.6-5.0) mmol/L Chloride 107.3 H (98-107) mmol/L Carbon Dioxide 18 L (22-30) mmol/L BUN 10 (7-17) mg/dL Creatinine 0.9 (0.6-1.2) mg/dL Glucose 83 (65-100) mg/dL Calcium 9.1 (8.4-10.2) mg/dL AST 19 (5-40) units/L ALT 36 (7-56) units/L Alkaline Phosphatase 117 (35-129) units/L Total Protein 8.0 (6.3-8.2) g/dL Albumin 4.5 (3.9-5) g/dL Assessment and Plan - Patient Problems (1) Chest pain Current Visit: Yes Status: Acute Qualifiers: Qualified Code(s): R07.9 - Chest pain, unspecified Plan to address problem: Atypical chest pain 11/2020 Echo: normal LVEF 55-60%. 02/2021 LHC: small vessel CAD recommended for medical therapy. 07/2021 Echo: well preserved EF. No cardiac workup indicated. Guideline directed medical therapy for small vessel coronary artery disease. Will reduce aspirin to low dose and add beta reina therapy.
[2021-08-13] MEDS ORDERED: METOPROLOL SUCCINATE XL 25 MG TAB PO SCH (13:00)
[2021-08-13] MEDS ORDERED: dilTIAZem CD 120 MG CAP PO SCH (13:00)
--- NOTE | 2021-08-13 15:25 | Discharge Summary ---
Providers - Providers Date of Admission: 08/12/21 21:32 Date of discharge: 08/13/21 Attending physician: RADHA GILLETTE MD 08/12/21 Consult to Cardiac Rehabilitation [CONS] Routine Reason For Exam: Phase I 08/12/21 21:29 Consult to Cardiology [CONS] Stat Consulting Provider: RICARDO LARKIN Reason For Exam: CP, hx of CAD Primary care physician: GOLDEN GOLDEN Hospitalization Reason for admission: chest pain Condition: Stable Hospital course: History of present illness: 41-year-old female with history of CAD, 50% blockage of her LAD was brought to the emergency room because of left-sided chest pain which is sharp 02/21 that began 3 days ago. Patient complained of intermittent sharp pain which she states feels like a pulling sensation but she reports today it has been constant. She states that she has some shortness of breath and feels like she needs to catch her breath. She denies any pleuritic pain. She denies any radiation of the pain, diaphoresis, nausea, vomiting, leg swelling, calf pain, hemoptysis, cough, diarrhea. She states that she had a heart cath in February 2021 with a tape stringer at [facility] and she states that she has 50% blockage of her LAD but states that they do not want to place a stent and wanted to manage it medically. Allergy to morphine. Patient is a former smoker. pt states she had a low dose aspirin 81 mg today EKG is within normal limits. Chest x-ray is normal. D-dimer is negative, PERC criteria negative for PE, PE unlikely. Troponin is negative x2. Patient's heart score is 4. Admit the patient to the medical telemetry. Will consult cardiology for further evaluation and treatment Med rec is not available Hospital course to date 08/13: D/w patient regarding chest pain. Appears to have accelerating symptoms of chest pain. She states she is complaint with medication. Patient has had workup with cardiac CT and cath which demonstrated calcific lesion in LAD approx 50%. She could benefit from long acting nitrate, such as imdur. cardiology recommneded guideline med therapy for small vessel CAD. ECHO read as normal by cardiology. Plan for discharge today. She will be discharged today. She was advised to follow up with her tape stringer as an outpatient ot discuss her hospital visit. Assessment and plan (1) Acute Coronary Syndrome Current Visit: Yes Status: Acute Plan to address problem: Admit the patient to the medical telemetry. N.p.o. Aspirin 325 mg p.o. daily. Lipitor 80 mg p.o. daily. Nitroglycerin half-inch to the chest wall every 6 hours. Serial cardiac enzymes. Echocardiogram. Consult cardiology for further evaluation and treatment. Heparin 5000 units subcu every 8 hours Atypical chest pain 11/2020 Echo: normal LVEF 55-60%. 02/2021 LHC: small vessel CAD recommended for medical therapy. 07/2021 Echo: well preserved EF. (2) Coronary artery disease Current Visit: Yes Status: Acute Plan to address problem: N.p.o. Aspirin 325 mg p.o. daily. Lipitor 80 mg p.o. daily. Nitroglycerin half-inch to the chest wall every 6 hours. Serial cardiac enzymes. Echocardiogram. Consult cardiology for further evaluation and treatment. Heparin 5000 units subcu every 8 hours Home cardiac meds: metoprolol ER 25 mg po qdaily, ASA 81, atorvastatin 40 mg po qhs, nitro 0.5 mg SL prn (3) Palpitations Current Visit: Yes Status: Acute Plan to address problem: History of palpitations per patient for which she takes diltiazem 120 mg po bid (3) Tobacco abuse Current Visit: Yes Status: Acute Plan to address problem: Patient counseled regarding quit smoking (4) DVT prophylaxis Current Visit: Yes Status: Acute Plan to address problem: Heparin 5000 units subcu every 8 hours for DVT prophylaxis. Protonix 40 mg p.o. daily for GI prophylaxis. Patient is a full code Disposition: 01 HOME / SELF CARE / HOMELESS Final Discharge Diagnosis (Prints w/discharge instructions): Chest pain Time spent for discharge: 35 Core Measure Documentation - Palliative Care Palliative Care/ Comfort Measures: Not Applicable - Core Measures Any of the following diagnoses?: none Exam - Physical Exam Narrative exam: Physical Exam: VITAL SIGNS: Reviewed. GENERAL: The patient appears normally developed, Vital signs as documented. HEAD: No signs of head trauma. EYES: Pupils are equal. Extraocular motions intact. EARS: Hearing grossly intact. MOUTH: Oropharynx is normal. NECK: No adenopathy, no JVD. CHEST: Chest with clear breath sounds bilaterally. No wheezes, rales, or rhonchi. CARDIAC: Regular rate and rhythm. S1 and S2, without murmurs, gallops, or rubs. VASCULAR: No Edema. Peripheral pulses normal and equal in all extremities. ABDOMEN: Soft, non tender and non distended. No rebound or guarding, and no masses palpated. Bowel Sounds normal. MUSCULOSKELETAL: Good range of motion of all major joints. Extremities without clubbing, cyanosis or edema. NEUROLOGIC EXAM: Alert and oriented x 4. no focal sensory or strength deficits. PSYCHIATRIC: Mood normal. SKIN: detail exam as documented in skin assessment - Constitutional Vitals: Temp Pulse Resp BP Pulse Ox 98.9 F 98 H 18 114/63 100 08/13/21 07:22 08/13/21 13:03 08/13/21 07:22 08/13/21 07:22 08/13/21 07:22 Plan Follow up with: GOLDEN GOLDEN MD [Primary Care Provider] - 3-5 Days
[2021-08-14] MEDS ORDERED: ASPIRIN EC 81 MG TAB PO SCH (10:00)
== END 2021-08-13 17:29 | disposition home or self-care (01) ==
LOC: ED 14:11 → 4A 21:32
PROVIDERS: ADMIT Hospitalist; ATTEND Internal Medicine
DX: I24.9 Acute ischemic heart disease, unspecified (principal); I25.10 Atherosclerotic heart disease of native coronary artery without angina pectoris; J45.909 Unspecified asthma, uncomplicated; R00.2 Palpitations; F32.A Depression, unspecified; F41.9 Anxiety disorder, unspecified; F17.210 Nicotine dependence, cigarettes, uncomplicated; Z79.82 Long term (current) use of aspirin
CPT/HCPCS: 36415; 71046; 80053; 84484; 84703; 85025; 85379; 93005; 93306; 96372; 99285; G0378; J1644; J7030; Q0162